=== PATIENT | male | born 1980 | race Caucasian/White ===

== ENCOUNTER 2017-08-03 09:57 | Emergency (ER) | payer SELFPAY ==
[~2017-08-03] VITALS: Ht 160 cm; Wt 69.8 kg
[2017-08-03 11:21] VITALS: BP 128/89
== END 2017-08-03 11:21 | disposition home or self-care (01) ==
LOC: ED 09:57
DX: J36 Peritonsillar abscess (principal)
CPT/HCPCS: J0561; J1100; J1885; J3010